=== PATIENT | female | born 1960 | race Two or more races ===

== ENCOUNTER 2020-04-09 07:30 | Inpatient (IN) | payer OTHER ==
[~2020-04-09] VITALS: Ht 149.9 cm; Wt 83.9 kg
[~2020-04-09 07:30] MED LIST: ARIPIPRAZOLE OD15 MG PO; CLONAZEPAM2 MG PO; DOXEPIN HCL150 MG PO; LAMOTRIGINE200 MG PO; VENLAFAXINE H37.5 M2 PO; VENLAFAXINE HC150 M1 PO
[2020-04-10] MEDS ORDERED: NABUMETONE750 MG (08:35)
== END 2020-04-11 18:49 | DRG 470 ==
LOC: CIR.AMB 07:30 → SURH 18:12
PROVIDERS: ADMIT Orthopaedic Surgery; ATTEND Orthopaedic Surgery
PROC: 0SRC0J9 Replacement of Right Knee Joint with Synthetic Substitute, Cemented, Open Approach (ICD-10-PCS; principal; 2020-04-09 13:00)
DX: M17.11 Unilateral primary osteoarthritis, right knee (principal); D62 Acute posthemorrhagic anemia; F41.8 Other specified anxiety disorders; Z96.651 Presence of right artificial knee joint

== ENCOUNTER 2020-07-26 15:30 | Outpatient (CLI) | payer OTHER ==
[~2020-07-26 15:30] MED LIST changes: +NABUMETONE750 MG
== END 2020-07-26 15:37 | disposition home or self-care (01) ==
LOC: RAD 15:30
PROVIDERS: ATTEND Orthopaedic Surgery
DX: M25.561 Pain in right knee (principal); M25.562 Pain in left knee

== ENCOUNTER 2021-02-05 10:06 | Outpatient (CLI) | payer OTHER | END 2021-02-05 10:24 | disposition home or self-care (01) | LOC: RAD 10:06 | PROVIDERS: ATTEND Orthopaedic Surgery | DX: M25.561 Pain in right knee (principal); M25.562 Pain in left knee ==

== ENCOUNTER 2021-03-12 12:51 | Outpatient (CLI) | payer OTHER | END 2021-03-12 13:00 | disposition home or self-care (01) | LOC: RAD 12:51 | PROVIDERS: ATTEND Orthopaedic Surgery | DX: M25.561 Pain in right knee (principal); M25.562 Pain in left knee ==

== ENCOUNTER 2022-03-11 07:06 | Outpatient (CLI) | payer OTHER | END 2022-03-11 07:18 | disposition home or self-care (01) | LOC: NUCLEAR 07:06 | DX: T84.498A Other mechanical complication of other internal orthopedic devices, implants and grafts, initial encounter (principal) | CPT/HCPCS: 78315; A9503 ==

== ENCOUNTER 2022-03-11 07:57 | Outpatient (CLI) | payer OTHER | END 2022-03-11 07:58 | disposition home or self-care (01) | LOC: RAD 07:57 | DX: Z96.651 Presence of right artificial knee joint (principal); M17.12 Unilateral primary osteoarthritis, left knee ==

== ENCOUNTER 2023-01-01 13:35 | Outpatient (CLI) | payer OTHER | END 2023-01-01 13:44 | disposition home or self-care (01) | LOC: MAMO-SONO 13:35 | PROVIDERS: ATTEND Obstetrics & Gynecology | DX: N64.4 Mastodynia (principal); Z12.31 Encounter for screening mammogram for malignant neoplasm of breast ==

== ENCOUNTER 2023-03-12 09:12 | Outpatient (CLI) | payer OTHER | END 2023-03-12 09:21 | disposition home or self-care (01) | LOC: MRI 09:12 | PROVIDERS: ATTEND Obstetrics & Gynecology | DX: N83.8 Other noninflammatory disorders of ovary, fallopian tube and broad ligament (principal) | CPT/HCPCS: 72197 ==

== ENCOUNTER 2024-10-04 12:59 | Emergency (ER) | payer OTHER ==
[~2024-10-04] VITALS: Ht 149.9 cm; Wt 84.8 kg
[2024-10-04] MEDS ORDERED: ATORVASTATIN CA40 MG PO (13:56)
[2024-10-04] MEDS ORDERED: LEVOTHYROXINE25 MCG PO (13:57)
[2024-10-04] MEDS ORDERED: KETOROLAC TROMETHAMINE 30 MG VIAL IM ONE (14:45)
[2024-10-04] MEDS ORDERED: DICLOFENAC SODI50 MG PO (17:27)
[2024-10-04 18:27] VITALS: BP 130/80; O2SAT 100
== END 2024-10-04 18:29 | disposition home or self-care (01) ==
LOC: ER 12:59
DX: M72.2 Plantar fascial fibromatosis (principal); M79.672 Pain in left foot; E03.9 Hypothyroidism, unspecified
CPT/HCPCS: 73630; 96372; 99283; J1885